=== PATIENT | female | born 1995 | race African-American/Black ===

== ENCOUNTER 2018-02-11 19:20 | Emergency (ER) | payer OTHER | END 2018-02-11 21:28 | disposition home or self-care (01) | LOC: ERS 19:20 | DX: J02.9 Acute pharyngitis, unspecified (principal); J45.909 Unspecified asthma, uncomplicated | CPT/HCPCS: 87081; 87430; 99283 ==

== ENCOUNTER 2018-11-29 07:05 | Outpatient (CLI) | payer OTHER ==
--- NOTE | 2018-11-29 07:34 | ULT ---
Pelvic sonogram transabdominal and transvaginal imaging with duplex evaluation HISTORY: Irregular menses. FINDINGS: Urinary bladder is decompressed uterus has a heterogeneous echotexture and measures up to 9 .0 cm. Endometrium is 0.3 cm. Small nabothian cysts arise from the cervix. No free fluid. The right ovary is 4.0 cm length and the left 3.2 cm. Each has a normal appearance with follicles and good color and spectral Doppler flow. IMPRESSION: Normal pelvic sonogram.
== END 2018-11-29 07:06 | disposition home or self-care (01) ==
LOC: BICULT 07:05
PROVIDERS: ATTEND Nurse Practitioner Family
DX: N92.1 Excessive and frequent menstruation with irregular cycle (principal)
CPT/HCPCS: 76856

== ENCOUNTER → 2019-02-26 | Emergency (ER) | payer OTHER | LOC: ERS 01:05 | DX: Z53.21 Procedure and treatment not carried out due to patient leaving prior to being seen by health care provider (principal) ==

== ENCOUNTER 2020-08-04 16:56 | Emergency (ER) | payer OTHER, SELFPAY ==
[2020-08-04] MEDS ORDERED: Acetaminophen 500 MG TAB ONE (18:31)
[2020-08-04] MEDS ORDERED: Metoclopramide HCl 10 MG/2 ML VIAL ONE (18:32)
[2020-08-04] MEDS ORDERED: diphenhydrAMINE 50 MG/ML VIAL ONE (18:32)
[2020-08-04] MEDS ORDERED: Aspirin 325 MG TAB ONE (18:38)
== END 2020-08-04 20:17 | disposition home or self-care (01) ==
LOC: ERS 16:56
DX: J32.9 Chronic sinusitis, unspecified (principal); J45.909 Unspecified asthma, uncomplicated
CPT/HCPCS: 70450; 96365; 96375; J1200; J2765